=== PATIENT | female | born 1980 | race African-American/Black ===

== ENCOUNTER 2022-11-02 20:40 | Emergency (ER) | payer OTHER ==
[2022-11-02] MEDS ORDERED: AMOXICILLIN 500 MG CAPSULE (FP) PO ONE (21:27)
[2022-11-02] MEDS ORDERED: AMOXICILLIN 250 MG CAPSULE ONE (21:31)
[2022-11-02 21:47] VITALS: BP 116/81; PULSE 93; RESP 18; TEMP 98.7; BMI 29.8
[2022-11-02 23:20] LABS: THROAT:GRP A STREP NOT DETECTED (NOTDETECTED)
== END 2022-11-02 21:40 | disposition home or self-care (01) ==
LOC: FER 20:40
DX: J02.9 Acute pharyngitis, unspecified (principal)
CPT/HCPCS: 0241U-QW; 87651; 99283-25

== ENCOUNTER 2023-06-22 17:24 | Emergency (ER) | payer OTHER ==
[2023-06-22 18:13] VITALS: RESP 18; BMI 32.9
[2023-06-22 18:13] LABS: HCG,QUALITATIVE URINE Positive
[2023-06-22 18:15] LABS: HEMATOCRIT 34.5 % (32.4-45.2); HEMOGLOBIN 11.1 G/dL (10.7-15.3); MCH 22.8 pg (25.7-33.7); MCHC 32.1 g/dl (32.0-36.0); MEAN CELL VOLUME 71.1 fl (80-96); MEAN PLT VOLUME 7.6 fl (7.5-11.1); PLATELET COUNT 240.9 10^3/uL (134-434); RBC 4.85 10^6/uL (3.60-5.2); RDW 18.7 % (11.6-15.6); WHITE BLOOD COUNT 8.7 10^3/uL (4.0-10.8)
[2023-06-22] MEDS ORDERED: ACETAMINOPHEN 500 MG TABLET (FP) PO ONE (18:21)
[2023-06-22 18:32] LABS: PLATELET ESTIMATE ADEQUATE
[2023-06-22 18:33] LABS: ALBUMIN 3.8 g/dl (3.4-5.0); BILIRUBIN,TOTAL 0.2 mg/dl (0.2-1); BLOOD UREA NITROGEN 10.8 mg/dl (7-18); CREATININE 0.6 mg/dl (0.6-1.3); POTASSIUM 3.8 mmol/L (3.5-5.1); SGOT/AST 16.1 U/L (15-37); SGPT/ALT 11.6 U/L (7-52); TOT PROT 6.4 g/dl (6.4-8.2)
[2023-06-22 18:40] LABS: EPITHELIAL CELLS MODERATE /hpf
[2023-06-22] MEDS ORDERED: ACETAMINOPHEN 500 MG TABLET (FP) ONE (19:11)
[2023-06-22 20:52] VITALS: BP 100/60; PULSE 78; TEMP 98.7
== END 2023-06-22 21:57 | disposition home or self-care (01) ==
LOC: FER 17:24
DX: O9A.211 Injury, poisoning and certain other consequences of external causes complicating pregnancy, first trimester (principal); S39.92XA Unspecified injury of lower back, initial encounter; Z3A.12 12 weeks gestation of pregnancy; W10.9XXA Fall (on) (from) unspecified stairs and steps, initial encounter
CPT/HCPCS: 36415; 76604; 76705-TC; 76801-TC; 80053; 81003; 81015; 84702; 84703; 85027; 86850; 86900; 86901; 93308; 99284-25

== ENCOUNTER 2023-08-17 14:25 | Observation (INO) | payer OTHER ==
[2023-08-17] MEDS ORDERED: ACETAMINOPHEN 500 MG TABLET (FP) PO ONE (14:57)
[2023-08-17] MEDS ORDERED: ACETAMINOPHEN 500 MG TABLET (FP) ONE (15:01)
[2023-08-17] MEDS ORDERED: morphine CARPU-JECT 4 MG/1 ML DISP.SYRIN IVPUSH ONE ×2 (15:10→17:18)
[2023-08-17] MEDS ORDERED: morphine SULFATE 4 MG/ML VIAL ONE (15:24)
[2023-08-17 15:41] LABS: HEMATOCRIT 44.5 % (32.4-45.2); HEMOGLOBIN 14.2 G/dL (10.7-15.3); MCH 22.3 pg (25.7-33.7); MCHC 31.8 g/dl (32.0-36.0); MEAN PLT VOLUME 8.4 fl (7.5-11.1); PLATELET COUNT 307.8 10^3/uL (134-434); RBC 6.36 10^6/uL (3.60-5.2); RDW 17.9 % (11.6-15.6); WHITE BLOOD COUNT 10.4 10^3/uL (4.0-10.8)
[2023-08-17 15:44] LABS: PLATELET ESTIMATE ADEQUATE
[2023-08-17 16:03] LABS: ALBUMIN 4.6 g/dl (3.4-5.0); BILIRUBIN,TOTAL 0.5 mg/dl (0.2-1); CALCIUM 9.4 mg/dl (8.5-10.1); POTASSIUM 3.9 mmol/L (3.5-5.1); TOT PROT 7.5 g/dl (6.4-8.2)
[2023-08-17] MEDS ORDERED: DIPHTH,PERTUSS(ACELL),TET 0.5 ML DISP.SYRIN IM ONE ×2 (18:18→18:20)
[2023-08-17 19:42] LABS: HEMATOCRIT 40.5 % (32.4-45.2); MCH 22.6 pg (25.7-33.7); MCHC 32.1 g/dl (32.0-36.0); MEAN CELL VOLUME 70.4 fl (80-96); PLATELET COUNT 256.6 10^3/uL (134-434); RBC 5.75 10^6/uL (3.60-5.2); RDW 17.7 % (11.6-15.6); WHITE BLOOD COUNT 9.1 10^3/uL (4.0-10.8)
[2023-08-17 19:56] LABS: PLATELET ESTIMATE ADEQUATE
[2023-08-17] MEDS ORDERED: ACETAMINOPHEN 325 MG TABLET (FP) PO PRN (20:28)
[2023-08-17] MEDS ORDERED: diazePAM 5 MG TABLET PO ONE (20:57)
[2023-08-17] MEDS ORDERED: KETOROLAC TROMETHAMINE 30 MG/1 ML VIAL IVPUSH ONE (20:58)
[2023-08-17] MEDS ORDERED: KETOROLAC TROMETHAMINE 30 MG/1 ML VIAL ONE (21:01)
[2023-08-17] MEDS ORDERED: diazePAM 5 MG TABLET ONE (21:01)
[2023-08-17 22:58] VITALS: BMI 70.0
[2023-08-18 02:29] VITALS: RESP 18
[2023-08-18] MEDS ORDERED: ACETAMINOPHEN 1000 MG/100 ML BAG IVPB ONE (06:38)
[2023-08-18] MEDS ORDERED: KETOROLAC TROMETHAMINE 30 MG/1 ML VIAL IVPUSH PRN (07:44)
[2023-08-18 09:06] LABS: HEMOGLOBIN 12.3 G/dL (10.7-15.3); MCH 22.3 pg (25.7-33.7); MCHC 31.6 g/dl (32.0-36.0); MEAN CELL VOLUME 70.7 fl (80-96); MEAN PLT VOLUME 8.5 fl (7.5-11.1); PLATELET COUNT 264.3 10^3/uL (134-434); RBC 5.52 10^6/uL (3.60-5.2); RDW 18.2 % (11.6-15.6); WHITE BLOOD COUNT 5.9 10^3/uL (4.0-10.8)
[2023-08-18 09:14] LABS: CALCIUM 8.6 mg/dl (8.5-10.1); CREATININE 1.1 mg/dl (0.6-1.3)
[2023-08-18 10:06] VITALS: BP 99/53; PULSE 89; TEMP 98.6
[2023-08-18 12:14] LABS: HEMATOCRIT 39.3 % (32.4-45.2); HEMOGLOBIN 12.7 G/dL (10.7-15.3); MCH 23.1 pg (25.7-33.7); MCHC 32.3 g/dl (32.0-36.0); MEAN CELL VOLUME 71.6 fl (80-96); MEAN PLT VOLUME 8.6 fl (7.5-11.1); PLATELET COUNT 251.5 10^3/uL (134-434); RBC 5.49 10^6/uL (3.60-5.2); RDW 18.4 % (11.6-15.6); WHITE BLOOD COUNT 6.2 10^3/uL (4.0-10.8)
== END 2023-08-18 14:09 | disposition home or self-care (01) ==
LOC: FER 14:25 → FM/S 20:24
PROVIDERS: ADMIT Internal Medicine; ATTEND Internal Medicine
PROC: 3E033NZ Introduction of Analgesics, Hypnotics, Sedatives into Peripheral Vein, Percutaneous Approach (ICD-10-PCS; principal; 2023-08-17)
PROC: 3E0234Z Introduction of Serum, Toxoid and Vaccine into Muscle, Percutaneous Approach (ICD-10-PCS; 2023-08-17)
PROC: 3E033NZ Introduction of Analgesics, Hypnotics, Sedatives into Peripheral Vein, Percutaneous Approach (ICD-10-PCS; 2023-08-17)
PROC: 3E0333Z Introduction of Anti-inflammatory into Peripheral Vein, Percutaneous Approach (ICD-10-PCS; 2023-08-17)
DX: S30.1XXA Contusion of abdominal wall, initial encounter (principal); R07.81 Pleurodynia; M54.9 Dorsalgia, unspecified; Y93.89 Activity, other specified; Z33.1 Pregnant state, incidental; V48.1XXA Car passenger injured in noncollision transport accident in nontraffic accident, initial encounter; Y92.410 Unspecified street and highway as the place of occurrence of the external cause; M25.552 Pain in left hip; Z23 Encounter for immunization
CPT/HCPCS: 36415; 70450-TC; 71260-TC; 72125-TC; 74177-TC; 76830-TC; 80048; 80053; 83735; 84100; 84702; 84703; 85027; 86850; 86900; 86901; 90715; 96371; 96374; 96375; 96376; 99285-25; G0378; Q9967

== ENCOUNTER 2024-04-03 10:54 | Emergency (ER) | payer OTHER ==
[2024-04-03 11:30] VITALS: PULSE 90; RESP 18; BMI 30.7
[2024-04-03 12:00] VITALS: BP 113/81; TEMP 99.5
[2024-04-03 12:01] LABS: HEMATOCRIT 46.3 % (32.4-45.2); HEMOGLOBIN 14.3 G/dL (10.7-15.3); MCH 22.4 pg (25.7-33.7); MCHC 30.9 g/dl (32.0-36.0); MEAN CELL VOLUME 72.4 fl (80-96); PLATELET COUNT 295.7 10^3/uL (134-434); RBC 6.39 10^6/uL (3.60-5.2); RDW 16.9 % (11.6-15.6); WHITE BLOOD COUNT 4.6 10^3/uL (4.0-10.8)
[2024-04-03 12:04] LABS: HCG,QUALITATIVE URINE Negative
[2024-04-03 12:27] LABS: ALBUMIN 4.3 g/dl (3.4-5.0); ALK PHOS 74 U/L (45-117); ANION GAP 7 mmol/L (4-13); BILIRUBIN,TOTAL 0.5 mg/dl (0.2-1); CALCIUM 9.2 mg/dl (8.5-10.1); CHLORIDE 101 mmol/L (98-107); CO2 28 mmol/L (21-32); GLUCOSE,RANDOM 97 mg/dl (74-106); POTASSIUM 4.3 mmol/L (3.5-5.1); SGOT/AST 14 U/L (15-37); SGPT/ALT 10 U/L (7-52); SODIUM 136 mmol/L (136-145); TOT PROT 6.9 g/dl (6.4-8.2)
[2024-04-03] MEDS: SODIUM CHLORIDE 0.9% 500 ML INFUS.BAG IV ONE (12:41)
[2024-04-03 13:10] LABS: PLATELET ESTIMATE ADEQUATE
== END 2024-04-03 14:14 | disposition home or self-care (01) ==
LOC: FER 10:54
DX: R55 Syncope and collapse (principal); R51.9 Headache, unspecified; Z20.822 Contact with and (suspected) exposure to COVID-19
CPT/HCPCS: 0241U-QW; 36415; 70450-TC; 71045-TC-FY; 80053; 81003; 84484; 84703; 85027; 93005; 99285-25

== ENCOUNTER 2024-11-21 19:18 | Emergency (ER) | payer OTHER ==
[2024-11-21 19:26] VITALS: BP 113/81; PULSE 100; RESP 20; TEMP 99.7; BMI 32.5
[2024-11-21] MEDS ORDERED: ACETAMINOPHEN 500 MG TABLET (FP) ONE (19:52)
[2024-11-21] MEDS: ACETAMINOPHEN 500 MG TABLET (FP) PO ONE (19:53)
== END 2024-11-21 22:48 | disposition home or self-care (01) ==
LOC: FER 19:18
DX: J10.1 Influenza due to other identified influenza virus with other respiratory manifestations (principal); R50.9 Fever, unspecified; M79.10 Myalgia, unspecified site; R05.9 Cough, unspecified
CPT/HCPCS: 0241U-QW; 71046-TC-FY; 99284-25